=== PATIENT | male | born 1935 | race Caucasian/White ===

== ENCOUNTER 2020-10-04 09:26 | Inpatient (IN) | payer MEDICARE, OTHER ==
[~2020-10-04] VITALS: Ht 185.4 cm; Wt 128.5 kg
[~2020-10-04 09:26] MED LIST: ASPIR 8181 MG PO; COUMADIN4 MG PO; FLAGYL500 MG PO; FLOMAX 0.4 MG0.4 MG PO; FLORASTOR250 MG PO; K-DUR TAB 20 M20 MEQ PO; LISINOPRIL20 MG PO; METOPROLOL TART25 MG PO
[2020-10-04 10:33] LABS: HEMOGLOBIN 13.8 gm/dl (14.0-17.5); RED BLOOD COUNT 5.03 M/UL (4.20-5.50); WHITE BLOOD COUNT 17.2 K/UL (4.5-11.0)
[2020-10-04] MEDS ORDERED: LANTUS SOL100 UNIT/1 SC (14:48)
[2020-10-04] MEDS ORDERED: ELIQUIS2.5 MG PO (15:39)
[2020-10-04] MEDS ORDERED: ACIDOPHILUS1 EAC4 PO (15:40)
[2020-10-04] MEDS ORDERED: ZYRTEC10 MG PO (15:40)
[2020-10-04] MEDS ORDERED: NEURONTIN100 MG PO (15:40)
[2020-10-04] MEDS ORDERED: NIFEDIPINE ER60 M1 PO (15:41)
[2020-10-04] MEDS ORDERED: XYLOCAINE 5% OI35 GM TOP (15:41)
[2020-10-04] MEDS ORDERED: NITROSTAT 0.40.4 MG SL (15:41)
[2020-10-04] MEDS ORDERED: ALDACTONE25 MG PO (15:42)
[2020-10-04] MEDS ORDERED: DIOVAN160 MG PO (15:42)
[2020-10-04] MEDS ORDERED: VITAMIN D325 MCG PO (15:43)
[2020-10-04] MEDS ORDERED: LIPITOR40 MG PO (22:53)
[2020-10-04] MEDS ORDERED: LASIX40 MG PO (22:53)
[2020-10-04] MEDS ORDERED: OMEPRAZOLE20 MG PO (22:54)
[2020-10-04] MEDS ORDERED: ZOLOFT100 MG PO (22:56)
[2020-10-04] MEDS ORDERED: LANTUS100 UNIT/1 SQ (22:59)
[2020-10-05 04:51] LABS: HEMOGLOBIN 11.6 gm/dl (14.0-17.5); RED BLOOD COUNT 4.4 M/UL (4.20-5.50); WHITE BLOOD COUNT 11.7 K/UL (4.5-11.0)
[2020-10-08 06:17] LABS: HEMOGLOBIN 10.9 gm/dl (14.0-17.5); RED BLOOD COUNT 4.01 M/UL (4.20-5.50); WHITE BLOOD COUNT 9.3 K/UL (4.5-11.0)
[2020-10-09] MEDS ORDERED: ZITHROMAX500 MG PO (10:59)
[2020-10-09] MEDS ORDERED: OMNICEF 300 MG300 MG PO (10:59)
[2020-10-10 05:48] LABS: HEMOGLOBIN 11.2 gm/dl (14.0-17.5); RED BLOOD COUNT 4.15 M/UL (4.20-5.50); WHITE BLOOD COUNT 11.5 K/UL (4.5-11.0)
[2020-10-11 05:21] LABS: HEMOGLOBIN 11.1 gm/dl (14.0-17.5); RED BLOOD COUNT 4.11 M/UL (4.20-5.50)
[2020-10-11 05:29] LABS: WHITE BLOOD COUNT 14.8 K/UL (4.5-11.0)
[2020-10-11 22:13] LABS: CORONAVIRUS HKU1 Not Detected (Not Detectd); CORONAVIRUS NL63 Not Detected (Not Detectd); CORONAVIRUS OC43 Not Detected (Not Detectd); CORONOAVIRUS 229E Not Detected (Not Detectd); HUMAN METAPNEUMOVIRUS Not Detected (Not Detectd); HUMAN RHINOVIRUS/ENTEROVIRUS Not Detected (Not Detectd); INFLUENZA A Not Detected (Not Detectd)
[2020-10-11 22:14] LABS: BORDETELLA PARAPERTUSSIS Not Detected (Not Detectd); BORDETELLA PERTUSSIS Not Detected (Not Detectd); CHLAMYDIA PNEUMONIAE Not Detected (Not Detectd); INFLUENZA B Not Detected (Not Detectd); MYCOPLASMA PNEUMONIAE Not Detected (Not Detectd); PARAINFLUENZA VIRUS 1 Not Detected (Not Detectd); PARAINFLUENZA VIRUS 2 Not Detected (Not Detectd); PARAINFLUENZA VIRUS 3 Not Detected (Not Detectd); PARAINFLUENZA VIRUS 4 Not Detected (Not Detectd); RESPIRATORY SYNCYTIAL VIRUS Not Detected (Not Detectd)
[2020-10-11 23:13] LABS: SARS-CoV-2 NOT DETECTED (Not Detectd)
[2020-10-12 06:56] LABS: HEMOGLOBIN 10.7 gm/dl (14.0-17.5); RED BLOOD COUNT 3.92 M/UL (4.20-5.50)
[2020-10-13 02:25] LABS: HEMOGLOBIN 10.2 gm/dl (14.0-17.5); RED BLOOD COUNT 3.78 M/UL (4.20-5.50); WHITE BLOOD COUNT 13.2 K/UL (4.5-11.0)
[2020-10-14 03:30] LABS: HEMOGLOBIN 10.2 gm/dl (14.0-17.5); RED BLOOD COUNT 3.81 M/UL (4.20-5.50); WHITE BLOOD COUNT 10.4 K/UL (4.5-11.0)
[2020-10-15 04:08] LABS: HEMOGLOBIN 10.7 gm/dl (14.0-17.5)
[2020-10-16 06:10] LABS: CREATININE, URINE 106.2 mg/dL (Not Estab.)
[2020-10-17 02:37] LABS: HEMOGLOBIN 10.5 gm/dl (14.0-17.5); RED BLOOD COUNT 3.93 M/UL (4.20-5.50); WHITE BLOOD COUNT 12.7 K/UL (4.5-11.0)
[2020-10-18 04:15] LABS: HEMOGLOBIN 10.4 gm/dl (14.0-17.5); RED BLOOD COUNT 3.94 M/UL (4.20-5.50); WHITE BLOOD COUNT 14.1 K/UL (4.5-11.0)
[2020-10-19 03:01] LABS: HEMOGLOBIN 10.1 gm/dl (14.0-17.5); RED BLOOD COUNT 3.89 M/UL (4.20-5.50)
[2020-10-20 03:48] LABS: RED BLOOD COUNT 3.74 M/UL (4.20-5.50); WHITE BLOOD COUNT 11.1 K/UL (4.5-11.0)
[2020-10-21 07:44] LABS: HEMOGLOBIN 10.6 gm/dl (14.0-17.5); WHITE BLOOD COUNT 11.1 K/UL (4.5-11.0)
[2020-10-21 07:45] LABS: RED BLOOD COUNT 4.13 M/UL (4.20-5.50)
[2020-10-22 03:55] LABS: HEMOGLOBIN 10.1 gm/dl (14.0-17.5); RED BLOOD COUNT 3.88 M/UL (4.20-5.50); WHITE BLOOD COUNT 10.6 K/UL (4.5-11.0)
[2020-10-23 03:17] LABS: HEMOGLOBIN 10.5 gm/dl (14.0-17.5); RED BLOOD COUNT 3.96 M/UL (4.20-5.50); WHITE BLOOD COUNT 9.2 K/UL (4.5-11.0)
[2020-10-24] MEDS ORDERED: ACETAMINOPHEN325 MG PO (11:34)
[2020-10-24] MEDS ORDERED: MUPIROCIN22 GM TOP (11:34)
[2020-10-24] MEDS ORDERED: LOPRESSOR 25 MG25 MG PO (11:34)
[2020-10-24] MEDS ORDERED: BUMETANIDE1 MG PO (11:34)
== END 2020-10-25 00:20 | DRG 177 ==
LOC: ER1 09:26 → PROG CARE 13:57 → CDU 13:57 → MED SURG 4 13:57 → PROG CARE 10-13 13:15
PROVIDERS: Emergency Medicine; Family Medicine; Internal Medicine; Internal Medicine Nephrology; ADMIT Internal Medicine
PROC: 5A09457 Assistance with Respiratory Ventilation, 24-96 Consecutive Hours, Continuous Positive Airway Pressure (ICD-10-PCS; 2020-10-04)
PROC: B24BZZZ Ultrasonography of Heart with Aorta (ICD-10-PCS; principal; 2020-10-06)
DX: J15.6 Pneumonia due to other Gram-negative bacteria (principal); I50.43 Acute on chronic combined systolic (congestive) and diastolic (congestive) heart failure; J96.22 Acute and chronic respiratory failure with hypercapnia; J96.21 Acute and chronic respiratory failure with hypoxia; N17.0 Acute kidney failure with tubular necrosis; I13.0 Hypertensive heart and chronic kidney disease with heart failure and stage 1 through stage 4 chronic kidney disease, or unspecified chronic kidney disease; I48.19 Other persistent atrial fibrillation; R04.2 Hemoptysis; L03.115 Cellulitis of right lower limb; M62.82 Rhabdomyolysis; Z20.822 Contact with and (suspected) exposure to COVID-19; E11.22 Type 2 diabetes mellitus with diabetic chronic kidney disease; E78.5 Hyperlipidemia, unspecified; E66.9 Obesity, unspecified; N28.1 Cyst of kidney, acquired; L01.00 Impetigo, unspecified; I35.0 Nonrheumatic aortic (valve) stenosis; K59.00 Constipation, unspecified; E87.6 Hypokalemia; N18.30 Chronic kidney disease, stage 3 unspecified; E11.649 Type 2 diabetes mellitus with hypoglycemia without coma; D72.829 Elevated white blood cell count, unspecified; E11.40 Type 2 diabetes mellitus with diabetic neuropathy, unspecified; G47.33 Obstructive sleep apnea (adult) (pediatric); E88.09 Other disorders of plasma-protein metabolism, not elsewhere classified; E11.65 Type 2 diabetes mellitus with hyperglycemia; D64.9 Anemia, unspecified; I25.10 Atherosclerotic heart disease of native coronary artery without angina pectoris; Z95.1 Presence of aortocoronary bypass graft; Z95.5 Presence of coronary angioplasty implant and graft; Z87.891 Personal history of nicotine dependence; Z91.041 Radiographic dye allergy status; Z79.01 Long term (current) use of anticoagulants; Z79.4 Long term (current) use of insulin; Z79.899 Other long term (current) drug therapy; Z68.36 Body mass index [BMI] 36.0-36.9, adult
CPT/HCPCS: ECHO; 36415; 36600; 71045; 71046; 78580; 80048; 80053; 80202; 81001; 82009; 82043; 82550; 82553; 82565; 82570; 82803; 82962; 83605; 83735; 83874; 83880; 84100; 84132; 84156; 84443; 84484; 85025; 85027; 87040; 87081; 87633; 87635; 93005; 93306; 94640; 94660; 94664; 94760; 96365; 96367; 96372; 96375; 96376; 97110; 97110-GP-CQ; 97116-GP-CQ; 97162; 97164; 97166; 97530; 97530-GP-CQ; 99285; A9540; J0696; J1335; J1650; J1940; J2020; J2185; J2405; J2543; J3370; J7030; J7070; U0002